=== PATIENT | male | born 1945 | race Caucasian/White ===

== ENCOUNTER 2017-04-03 08:03 | Day surgery (SDC) | payer MEDICARE, OTHER ==
--- NOTE | 2017-04-02 08:17 | PCM.HPSURG ---
Subjective Date of Service: March 30, 2017 Referring Provider: Admitting Physician: Primary Care Physician: Rahat Muniz MD Attending Physician: William Araiza MD Chief Complaint SEE BELOW History of Present Illness Patient: Dhruv Yañez Date of : 1945 Visit Type: Pre Op Visit Date: 03/30/2017 09:00 AM This 72 year old male presents for Preop L4-5 MIS Ck Segment Decompress/ Microdisc & Fat. History of Present Illness: 1. Preop L4-5 MIS Ck Segment Decompress/Microdisc & Fat Dhruv Yañez is a 72 year old male referred by Primary care Provider (PCP) Dr. Malcolm Muniz M.D. with [facility]. Chilango Painter M.D. who presents today' s date 03/30/2017 for a preoperative type of appointment concerning the decision for surgery involving METRx minimally invasive microscopic bilateral lumbar segmental decompression L4-5 with approach from the right & left-sided L4 -5 microdiscectomy, lateral recess decompression of the L4 & L5 nerve roots with harvest of subcutaneous fat for placement of epidural fat graft from separate incision secondary to a diagnosis of lumbar radiculopathy with related complaints of severe, intractable, debilitating lower back pain radiating to the bilateral right > left lower extremities with numbness. Dr. William Araiza M.D. last evaluated the patient on 03/28/2017 at [facility] in [facility] documenting that the patient is usually in a good state of health until he was cleaning his cupboards on February 08. The patient felt a pop in his back & since that time he has had severe lower back & bilateral leg pain. Initially it was worse in the left than on the right. The patient sought medical attention & was placed on appropriate conservative measures including physical therapy. He was only able to tolerate physical therapy for 2 weeks. He developed progressive symptoms with the pain & discomfort is slightly greater on the right than the left leg. On the left side the pain extends all the way to the dorsum of the foot. He had a course of oral steroids. A recent MRI scan demonstrated evidence of severe acquired spinal stenosis at L4-5 level secondary to central disc herniation slightly asymptomatic to the left side. There was also severe lateral recess narrowing. He is here today regarding his current symptoms. He denies any recent changes in bowel or bladder dysfunction. He does feel weaker on his lower extremities although not progressive. According to Dr. Araiza. The patient's MRI scan shows multilevel degenerative disc & facet disease. At the L4-5 level the patient appears to have a large central & left-sided disc herniation causing severe acquired spinal stenosis at the L4-5 level asymmetric to the left side. There is moderate-severe lateral recess narrowing. Dr. Araiza's impression is that the patient has severe intractable bilateral lumbar radiculopathy secondary to central disc herniation slightly asymmetric to the left side causing acquired severe spinal stenosis at the L4-5 level. After reviewing the patient's history, examination, & MRI studies confirming symptomatic spinal pathology & failed conservative treatment ; Dr. Araiza recommend surgical intervention involving minimally invasive lumbar spinal decompression & microdiscectomy with epidural fat graft from a separate incision. Dr. Araiza the patient reviewed all the risks and benefits associated with the procedure as well as reasonable expectations with expected surgical outcomes & the patient elected to proceed with surgery as planned. The patient currently denies any related complete or acute loss of control of bowel or bladder function, saddle paresthesia or anesthesia. The patient has a reported pertinent past medical, surgical, family, & social history for multiple cardiac stents, coronary artery disease, surgical bowel resection, nephrolithiasis, + & spontaneous pneumothorax, with no other then the above known positive history &/or review of all other organ systems. The patient's related complaints have been a serious detriment to their happiness and activities of daily living. Having failed conservative treatment the patient presents today for their decision for surgery appointment involving METRx minimally invasive microscopic bilateral lumbar segmental decompression L4-5 with approach from the right & left-sided L4-5 microdiscectomy, lateral recess decompression of the L4 & L5 nerve roots with harvest of subcutaneous fat for placement of epidural fat graft from separate incision for treatment of lumbar radiculopathy; related to severe, intractable, and debilitating lower back pain radiating to the bilateral right > left lower extremities with numbness. The procedure is scheduled to be performed by Dr. William Araiza M.D. on 04/03/2017. ANESTHESIA NOTE: We are requesting anesthesia consultation for cardiac comorbidities & recent surgery scheduling. Problem List: Problem Description Microscopic hematuria Sciatica, left side Unspecified Chest Pain CAD Angina Nos Nephrolithiasis Problem List (not yet mapped to SNOMED-CT): Problem Description Hyperlipidemia-mixed disorder AR-Acute Inferior AR-Recent Inferior, with re-stenting of occluded mid RCA Tricuspid Valve-regurgitation Pneumonia, recurrent 03/23 Bruit, R Femoral PTCA RCA w/ Intracoronary Stent 12/24 Reviewed, no change. Last detailed document date:03/30/2017. Family History: Reviewed, no changes. Last detailed document date:03/30/2017. Social History (Reviewed, updated) 03/30/2017 Tobacco use reviewed. Preferred language is Urdu. The patient does not need an printer small print shop. Smoking status: Light tobacco smoker. Smoking Status Use Status Type Smoking Status Years Used Total Pack Years yes Cigarette Light tobacco smoker CAFFEINE The patient uses caffeine - 2 a day. Allergies: Ingredient Reaction Medication Name Comment NAPROXEN Anaphylaxis NAPROSYN Reviewed, no changes. Review of Systems System Neg/Pos Details MS Positive Back pain. Integumentary Negative Mrsa and rash. Taz/Lymph Negative Blood clots. Negative Dysuria, urge incontinence and urinary incontinence. Eyes Negative Double vision and vision loss. Constitutional Negative Chills and fever. MS Negative Bone/joint symptoms and muscle weakness. Psych Negative Anxiety and depression. Neuro Negative Dizziness, headache and seizures. Cardio Negative Chest pain, irregular heartbeat/palpitations, leg swelling and pacemaker. Endocrine Negative Weight gain and weight loss. Respiratory Negative Dyspnea, apnea and wheezing. ENMT Negative Hearing loss. GI Negative Abdominal pain, constipation, diarrhea, nausea and vomiting. Vital Signs Height Time ft in cm Last Measured Height Position % 8:55 AM 5.0 6.00 167.64 03/19/2007 Weight/BSA/BMI Time lb oz kg Context % BMI kg/m2 BSA m2 8:55 AM 141.20 64.047 dressed with shoes 22.79 Blood Pressure Time BP mm/Hg Position Side Site Method Cuff Size 8:55 AM 121/77 sitting left wrist automatic adult Temperature/Pulse/Respiration Time Temp F Temp C Temp Site Pulse/min Pattern Resp/ min 8:55 AM 98.0 36.7 65 regular Pain Scale Time Pain Score Method 8:55 AM 4/10 Numeric Pain Intensity Scale Measured By Time Measured by 8:55 AM Raj Danielle MA Screening Summary:o The following were reviewed: tobacco use Physical Exam Exam Findings Details Comments WD/WN, male who is AO x 3, cooperative & appears to be in NAD w/ language & speech that is intact & fluent. There is no evidence of recent or remote memory impairment. The patient's knowledge is appropriate for age & level of education w/ a pleasant affect & euthymic mood. Ambulates w/ no difficulty. NC/AT, PERRL, EOMI, w/o facial droop, hearing grossly intact, nostrils patent, oral cavity and pharynx normal. Neck supple, w/o LAD or thyromegaly. Heart reveals RRR w/o audible murmurs Lungs CTAB Abdomen is NT/ND Margin voluntary paraspinal muscle spasm. No tenderness over her SI joint. Positive straight leg raise maneuver on the left side at 45 and on the right at 50. Weakness of dorsiflexion on the left side & 5/5 on the right. He has numbness predominantly in the L5 distribution. Assessment/Plan # Detail Type Description 1. Assessment Lumbar radiculopathy (M54.16). 2. Assessment Preoperative examination (Z01.818). Patient Plan We including your Attending Surgeon have discussed the risks and benefits associated your scheduled procedure which you have verbally acknowledged understanding including but not limited to the possibility of an outcome that we are unable to predict or was not mentioned. 1. You are scheduled for a METRx minimally invasive microscopic bilateral lumbar segmental decompression L4-5 with approach from the right & left-sided L4 -5 microdiscectomy, lateral recess decompression of the L4 & L5 nerve roots with harvest of subcutaneous fat for placement of epidural fat graft from separate incision with Dr. William Araiza M.D. at [facility] on . 2. Check in time is 8 a.m. Also please ignore instructions below if told otherwise by your preadmission nurse or if you do not take the medications listed below. 3. Nothing to eat after midnight the night before surgery. You may take all of your "approved" medications with small sips of water. Remember to take your a.m. hypertension medication if it is a beta natacha and ends in "olol. Otherwise ask your doctor if you need to hold your a.m. hypertension medication. 4. No aspirin, ibuprofen, Naprosyn, or other NSAIDs starting 7 days prior to surgery. 5. Please stop Warfarin/Coumadin or other blood thinners such as Plavix, Aggrenox, or Xarelto 7 days prior to your surgical procedure and follow specific instructions from your prescribing provider. 6. Please stop Lovenox bridging in the morning one day prior to procedure. 7. Please stop Suboxone/Buprenorphine at least 4 days prior to procedure. 8. Go to the hospital today to get her preoperative testing done. Take the order form to the surgery desk on the second floor of the hospital, [facility] (main entrance next to the emergency entrance). I will notify you if there is any test results that require further workup prior to surgery. 9. Follow the instructions you were given today, use the cleansing cloths the night before as well as the morning of her surgery. 10. If you are prescribed inhalers, CPAP or BiPAP machines you use at home bring along with you to the hospital. 11. ONLY If you take medications for Diabetes: If you have an insulin pump continue lowest (typically night-time) basal rate into the a.m. If you do not have a pump check h your a.m. blood sugar and hold insulin if BS less than 100. If you are taking long-acting, intermediate acting (NPH) or 70/30 preparation : Take half on day of procedure. If you are taking ultra long-acting insulin such as glargine, Lantus either at night or in the a.m. continue as scheduled ( including day of surgery). If you take short acting regular insulin (insulin not delivered via pump) discontinue on day of procedure. 12. Please call if you have any questions before your surgery: [phone]. Today's instructions/counseling include(s) Pre-operative instructions given to the patient and or legal customer field representative(s) orally and in writing. 13. Our office will contact you if there are any test results that require further workup prior to surgery. Provider Plan The patient's history and examination as well as radiological findings were reviewed with Dr. William Araiza M.D. and conveyed the patient in detail. The findings are consistent with lumbar radiculopathy and are most likely the cause of the patient's severe, intractable, and debilitating lower back pain radiating to the right > left lower extremities with numbness. The patient has failed extensive conservative treatment for this condition. The treatment options were discussed with the patient. The options include attempt to live with the condition, reattempt conservative treatment, try a pain management intervention / injection or consider a surgical intervention. We are not extremely optimistic that further conservative treatment, pain management intervention and/or injection will adequately resolve the patient's symptoms of severe, intractable, and debilitating lower back pain radiating into the right > left lower extremities with numbness. Therefore we recommend METRx minimally invasive microscopic bilateral lumbar segmental decompression L4 -5 with approach from the right & left-sided L4-5 microdiscectomy, lateral recess decompression of the L4 & L5 nerve roots with harvest of subcutaneous fat for placement of epidural fat graft from separate incision. The patient was provided/offered educational materials pertaining to their diagnosis and the above discussed procedure. We discussed the risks and benefits associated with this surgery. A spine model was used to explain the nature of this type of surgery. The risk of the required anesthesia was also mentioned including but not limited to organ failure such as heart attack, pneumonia and stroke even . The risk of this type of surgery was also mentioned. Including but not limited to an unsuccessful outcome, residual symptoms, referred or radiating posterior spinal myofascial inflammatory pain or spasm, post operative instability, instrumentation failure, sensory changes, blood loss, blood clots, wound infection, spinal cord or nerve damage, CSF or lymph leak, damage to neighboring structures such as the recurrent laryngeal nerve, perforation of the esophagus or trachea, abdominal vasculature, bowel, ureter, and bladder, resulting in temporary or permanent dysfunction, even disability, paralysis, and . The recovery of this type of surgery was also mentioned. There is a 15% chance of recurrent disc herniation with a discectomy. The chances for improvement of the related lower extremity lumbar radiculopathy symptomology at one year is 70-80%. The chances of improvement of unrelated local mechanical lower back pain is 50%. The patient verbalized understanding all the risks and benefits, knowing that it is impossible to predict or guarantee every surgical outcome; and would like to proceed with the above discussed procedure anyways. Surgery is scheduled for 04/03/2017 The standard [facility] preoperative screening tests, medicine restrictions, and logistical protocols apply. Any preoperative testing is within normal limits to undergo the above discussed procedure unless otherwise noted in the medical record. ANESTHESIA NOTE: We are requesting anesthesia consultation for cardiac comorbidities & recent surgery scheduling. Medications (added, continued or stopped this visit): Start Date Medication Directions Stop Date 01/17/2007 Aspirin 81 Mg Tablet 1 tablet by mouth daily 02/09/2017 Crestor 20 mg tablet 1 tabs daily 01/03/2027 02/09/2017 cyclobenzaprine 5 mg tablet take 1 tablet by oral route 3 times every day 04/02/2017 cyclobenzaprine 5 mg tablet take 1-2 tablet(s) by oral route every 8 hours as needed for spasm 03/30/2017 docusate sodium 250 mg capsule take 1 capsule by oral route 2 times every day lisinopril 5 mg tablet take 1 tablet by oral route every day 01/13/2005 Nitroglycerin Take as Directed 04/02/2017 Percocet 5 mg-325 mg tablet take 1 - 2 tablet by oral route every 4 - 6 hours as needed for pain 01/17/2007 Toprol Xl 1 tablet by mouth daily Counseling/Educational Factors: Counseling / educational factors reviewed. Counseling / educational factors reviewed. This is a visit of 60 minutes. 50 minutes were spent counseling. This document may have been created using voice recognition software or other electronic means and may contain inadvertent transporter radiology errors. Provider: Az PANIAGUA 03/30/2017 12:25 PM Document generated by: Az Hearn 03/30/2017 12:25 PM CC Providers: Rahat Muniz [address] [place] [address]- Rahat Muniz [address] [place] [address]- Chilango Painter [address] [place] [address] w neha araiza i oksana lemus s Rob appiah g Allergy Allergies: Coded Allergies: amoxicillin (Verified Allergy, Severe, Anaphylaxis, 11/20/15) naproxen (Verified Allergy, Severe, Anaphylaxis, 11/20/15) Social History Hx Alcohol Use: Yes Alcoholic Drinks Per Day: holidays Hx Substance Use: No PMH HEENT History History of ENT Problems?: No HEENT History: Positive for:: Sinus Problem Denies:: Cataracts Dysphagia Cardiovascular History History of Heart Problems?: Yes Cardiovascular History: Positive for:: Cardiac Surgery (ptca with stent 2006- stent to RCA) Chest Pain Denies:: Congestive Heart Failure Edema Heart Murmur Hypertension Irregular Heartbeat Pacemaker Thrombophlebitis Respiratory History of Respiratory Problem: Yes Respiratory History: Positive for:: Dyspnea (hx of spontaneous pneumo 1976, 1977) Pneumonia (remote hx of) Denies:: Asthma COPD Chest Surgery Emphysema Hemoptysis Oxygen Administration Tuberculosis Use of C-PAP Machine Neurological History Hx Neurologic Problems?: No Neurological History: Denies:: Alzheimer's Disease CVA Dementia Dizziness Headaches Parkinson's Disease Seizures Gastrointestinal History HX of GI Problems?: No Genitourinary History Hx of Gu Problems?: Yes Genitourinary History: Positive for: Kidney Stones (remote hx of) Denies: Urinary Tract Infection Skin History Skin History: Denies:: History Skin Disorders? Musculoskeletal History Hx Musculoskeletal Problems?: Yes Musculoskeletal History: Positive for:: Back Injury (lumbar spinal stenosis current admission problem) Psycho Social History Hx of Psycho/Social Problems?: No Other History Hx Any Other Health Problems?: Yes Other History: Positive for:: Hospitalization Denies:: Cancer Thyroid Disease Diabetes: No Social History Hx Alcohol Use: YesAlcoholic Drinks Per Day: holidaysHx Substance Use: No Smoking Status: Former Smoker Az Hearn PA-C April 02, 2017 08:17
[~2017-04-03] VITALS: Ht 167.6 cm; Wt 63.6 kg
[2017-04-03] VITALS (13 sets, daily range): BP systolic 113–157; BP diastolic 55–81; PULSE 59–85; RESP 14–18; O2SAT 96–99
[2017-04-03] MEDS: Lactated Ringer's 1,000 ML IV SCH ×5 (05:00→13:42)
[2017-04-03] MEDS: Thrombin Powder 5,000 Unit TOPICAL SCH ×2 (06:00→10:51)
[2017-04-03] MEDS: Clindamycin 900 mg/50 mL D5W Premix IV SCH ×2 (06:00→10:16)
[~2017-04-03 08:03] MED LIST: ASPI-973 PO; Bacitracin 50,000 unit Inj IRRIGATION SCH; CRES20T PO; CYCL5TAB PO; LISI-571 PO; METO25TA6 PO; NITR0.4T6 SL
[2017-04-03] MEDS ORDERED: Neostigmine 1 mg/mL 10 mL Inj ONE (08:04)
[2017-04-03] MEDS ORDERED: Rocuronium 10 mg/mL 5 mL Inj ONE (08:04)
[2017-04-03] MEDS ORDERED: Phenylephrine/NS 100 mCg/mL 10 mL Syringe IVPUSH ONE (08:04)
[2017-04-03] MEDS ORDERED: EPHEDrine/NS 5 mg/mL 5 mL Syringe ONE (08:04)
[2017-04-03] MEDS ORDERED: Propofol 10,000 mCg/mL 20 mL Inj ONE (08:04)
[2017-04-03] MEDS ORDERED: Ondansetron 2 mg/mL 2 mL Inj ONE (08:04)
[2017-04-03] MEDS ORDERED: fentaNYL-PF 50 mCg/mL 2 mL Inj ONE (08:04)
[2017-04-03] MEDS ORDERED: Dexamethasone 4 mg/mL Inj ONE (08:04)
[2017-04-03] MEDS ORDERED: Glycopyrrolate 0.2 MG/ML 1mL Inj ONE (08:04)
[2017-04-03] MEDS ORDERED: Esmolol 10,000 mCg/mL 10 mL Inj ONE (08:04)
[2017-04-03] MEDS ORDERED: HYDR-3090 PO (08:58)
--- NOTE | 2017-04-03 09:38 | PCM.HPANE ---
Patient Data Surgeon Admitting Provider: Attending Provider:William Araiza MD Primary Care Physician:Rahat Muniz MD Other Provider:AsscordeliaDonora Anesthesia Reason for Visit Lumbar Spinal Stenosis Ht/WT & BMI Height (Feet): 5 Height (Inches): 6 Weight (Kilograms): 63.6 Body Mass Index 22.00 Allergies Coded Allergies: amoxicillin (Verified Allergy, Severe, Anaphylaxis, 11/20/15) naproxen (Verified Allergy, Severe, Anaphylaxis, 11/20/15) Past Anesthesia History Anesthesia History: Denies:: Abnormal Airway, Anesthesia Reactions, Difficult Intubation, Fam Anesthesia Reaction, Fam Malignant Hypertherm, Malignant Hyperthermia Diabetes History Hx Diabetes?: No MRSA MRSA: No Medications Blood Thinner: Aspirin Hypertension Medication: Yes Home Meds Incl Beta Guero: Yes Previous Beta Guero Dose >24: Previous Dose <24 Hours Reported Medications Hydrocodone-Acetaminophen 5-300 mg 1 Each Tablet1 Tablet PO Q4H PRN For Pain Ref 0 04/03/17 Cyclobenzaprine 5 Mg Tablet5 Mg PO TID PRN Spasm 03/30/17 Metoprolol Tartrate 25 Mg Rlypzi71.5 Mg PO DAILY 30 Days Ref 0 03/30/17 Nitroglycerin SL 0.4 Mg Tab.subl0.4 Mg SL PRN For Chest Pain 03/30/17 Lisinopril 5 Mg Tablet5 Mg PO DAILY #30 TABLET Ref 0 03/30/17 Rosuvastatin Calcium (Crestor)20 Mg [id number] Mg PO DAILY 30 Days Ref 0 03/30/17 Aspirin 81 Mg [id number] Mg PO DAILY Ref 0 03/30/17 History History of ENT Problems?: No HEENT History: Positive for:: Sinus Problem Denies:: Abnormal Airway Cataracts Difficult Intubation Dysphagia Glaucoma Hearing Problem TMJ Denture Type: None Teeth Condition: Within Normal Limits Hx of Heart Problems?: Yes Cardiovascular History: Positive for:: Cardiac Surgery (ptca with stent 2006- stent to RCA) Chest Pain Denies:: Congestive Heart Failure Edema Heart Murmur Hypertension Irregular Heartbeat Pacemaker Thrombophlebitis Other Cardiac History: > 4 METS, recent stress echo notable for good exercise capacity, possible ischemia on stress echo ( this has been worked up in the past with coronary catheterization without intervention) Hx of Respiratory Problem?: Yes Respiratory History: Positive for:: Dyspnea (hx of spontaneous pneumo 1976, 1977) Pneumonia (remote hx of) Denies:: Asthma COPD Chest Surgery Emphysema Hemoptysis Oxygen Administration Tuberculosis Use of C-PAP Machine Hx Neurologic Problems?: No Neurological History: Denies:: Alzheimer's Disease CVA Dementia Dizziness Headaches Parkinson's Disease Seizures Hx of GI Problems?: No Hx of Problems?: Yes Genitourinary History: Positive for:: Kidney Stones (remote hx of) Denies:: Urinary Tract Infection Skin History: Denies:: History Skin Disorders? Hx Musculoskeletal Problems?: Yes Musculoskeletal History: Positive for:: Back Injury (lumbar spinal stenosis current admission problem) Hx of Psycho/Social Problems?: No Hx Surgeries?: Yes (kidney stones, vasectomy, both cardiac stents.) Hx Any Other Health Problems?: Yes Other History: Positive for:: Hospitalization Denies:: Cancer Thyroid Disease History Blood Transfusions: Denies:: Blood Transfuse Reaction Blood Transfusions Hx Diabetes: No Hx Alcohol Use: YesAlcoholic Drinks Per Day: holidaysHx Substance Use: No Smoking Status: Former Smoker Have You Smoked inLast 12 mo: Yes Stop/Bang B- Body Mass Index > 35 kg/m2: No A- Age over 50: Yes N- Neck Large Circumference: No G- Gender Male: Yes SUDHIR Risk Assessment: Low Risk, <3 Yes Risk Assessment Category Category 1A: Patient has history of documented sleep apnea, and HAS NOT received any narcotic, sedative or anesthesia administration during this stay. Category 1B: Patient has history of documented sleep apnea, and HAS received any narcotic , sedative or anesthesia administration during this stay Category 2: Patient has SUSPECTED Obstructive Sleep Apnea, and HAS received any narcotic , sedative or anesthesia administration during this stay. Category 3: Patient has SUSPECTED Obstructive Sleep Apnea and HAS NOT received narcotic, sedative or anesthesia administration during this stay. Category 4: Outpatient in Procedural Areas with known sleep apnea or who screen positive for High Risk via the STOP/BANG questionnaire. Exam Exam Vital Signs Vital Signs Date Time Temp Pulse Resp B/P Pulse Ox O2 Delivery O2 Flow Rate FiO2 04/03/17 08:18 36.2 59 15 127/59 98 Room Air General Appearance: Alert, Oriented X3, Cooperative, No Acute Distress HEENT/AIRWAY: MP 2 Lungs: Clear to Auscultation, Normal Air Movement Heart: Exam Unremarkable, Regular Rate/Rhythm, No Murmurs/Rubs/Gallops Meds/Labs/Diagnostics Admission Meds Current Medications Lactated Ringer's (Lr) 1,000 ml @ 120 mls/hr Q8H20M IV Last administered on t 08:05; Start 04/03/17 at 05:00; Stop 04/03/17 at 13:19 Plan Impression Patient chart reviewed, patient interviewed and anesthestic plan with risks, benefits, and alternatives discussed, and informed consent obtained. NPO per Anesth. Guidelines: Yes ASA Physical Status: ASA3 Severe Disease Anesthetic Support Modalities: Arterial Line Anesthetic Plan: GA Bene/Risks/Altern/Consents: Yes (patient understands risks and chooses to proceed, arterial line placement post-induction given that patient took MARYSE-I this morning along with Betablocker) HP Complete Prior to Induction: Yes Toy Pugh MD April 03, 2017 08:40
[2017-04-03] MEDS ORDERED: Lactated Ringer's 500 ML IV PRN (09:39)
[2017-04-03] MEDS ORDERED: Lactated Ringer's 1,000 ML IV SCH (09:39)
[2017-04-03] MEDS ORDERED: Ondansetron 2 mg/mL 2 mL Inj IVPUSH PRN ×3 (09:40→12:10)
[2017-04-03] MEDS ORDERED: Phenylephrine 10,000 mCg/mL Inj IVPUSH PRN (09:40)
[2017-04-03] MEDS ORDERED: fentaNYL-PF 50 mCg/mL 2 mL Inj IVPUSH PRN (09:40)
[2017-04-03] MEDS ORDERED: Labetalol 5 mg/mL 4 mL Inj IV PRN (09:40)
[2017-04-03] MEDS ORDERED: Atropine 0.4 mg/mL Inj IVPUSH PRN (09:40)
[2017-04-03] MEDS ORDERED: EPHEDrine Sulfate 50 mg/mL Inj IVPUSH PRN (09:40)
[2017-04-03] MEDS ORDERED: HYDROmorphone 1 mg/mL Inj IVPUSH PRN ×2 (09:40→12:10)
[2017-04-03] MEDS ORDERED: MetoCLOpramide 5 mg/mL 2 mL Inj IVPUSH PRN ×2 (09:40→12:10)
[2017-04-03] MEDS ORDERED: Gelatin Sponge 12-7 MM TOPICAL ONE (10:49)
[2017-04-03] MEDS ORDERED: Bacitracin 50,000 unit Inj IRRIGATION ONE (10:49)
[2017-04-03] MEDS ORDERED: Bupivacaine-MPF 0.25%/EPI 30 mL Inj INJ ONE (10:50)
[2017-04-03] MEDS ORDERED: Lactated Ringer's 1,000 ML IV ONE (11:08)
--- NOTE | 2017-04-03 11:25 | DRSVH ---
PROCEDURE: X-RAY LUMBAR SPINE, 2 OR 3 VIEW INDICATIONS: L3-5 DISCECTOMY, INTRAOPERATIVE LOCALIZATION TECHNIQUE: 3 views of the lumbar spine were acquired. COMPARISON: None. FINDINGS: Radiopaque surgical probe projected over the posterior elements at the L4-L5 level for operative plan vanita. IMPRESSION: Radiopaque surgical probe projected over the posterior elements on the right at the L4-L5 level. Dr. Araiza given results at 1050 hrs. 04/03/2017. Dictated by: Lg Hickman [facility] Interpreted: Kiara Monzon MD on 04/03/2017 at 11:07 Transcribed by: REYNALDO on 04/03/2017 at 11:11 Approved by: Kiara Monzon MD, PhD on 04/03/2017 at 15:11
[2017-04-03] MEDS ORDERED: Sodium Biphos-Phos 133 mL Enema RECTAL PRN (12:10)
[2017-04-03] MEDS ORDERED: Senna-Docusate 8.6-50 mg Tablet PO PRN (12:10)
[2017-04-03] MEDS ORDERED: Polyethylene Glycol (PEG) 17 Gm Powder PO PRN (12:10)
[2017-04-03] MEDS ORDERED: Magnesium Hydroxide 10 mL Oral Concentration PO PRN (12:10)
[2017-04-03] MEDS ORDERED: hydrOXYzine Pamoate 25 mg Capsule PO PRN (12:10)
[2017-04-03] MEDS: Acetaminophen IV 1,000 MG in IV Premix 1 EACH IV SCH ×3 (12:10→23:42)
--- NOTE | 2017-04-03 12:40 | PCM.ANEP1 ---
Post Anesthesia Phase 1 PACU Phase 1 Assessment Date of Service: March 30, 2017 Vital Signs Vital Signs Date Time Temp Pulse Resp B/P Pulse Ox O2 Delivery O2 Flow Rate FiO2 04/03/17 08:47 36.2 59 15 127/59 98 Room Air 04/03/17 08:18 36.2 59 15 127/59 98 Room Air Anesthetic Administered: GA Level of Alertness: Sleepy, easy to arouse DUARTE's with Equal Strength: Yes Pain: No Nausea or Vomiting: No Airway Device: Oralpharangeal Airway Oxygen Delivery: Simple Mask Lungs: Clear to Auscultation, Normal Air Movement Summary VSS, see BACKROOM ASSOCIATE notes, arterial line out in PACU Complications: No Follow up Care: No Patient Instructions Provided: Yes (per surgeon, ) Toy Pugh MD April 03, 2017 12:40
--- NOTE | 2017-04-03 14:36 | NUR ---
Post Op Patient received from PACU after 1300 today. VSS, dressing CDI. Patient rating pain at 6/10, PRN Dilaudid effective for this. Pt calm and coop with care.
--- NOTE | 2017-04-03 15:05 | OP ---
[address] [address] OPERATIVE REPORT PATIENT: KEM SCHULER : 1945 MR#: [id number] ADMIT: 04/03/2017 JOB ID: [id number] DATE OF SURGERY: 04/03/2017 SURGEON: William Araiza MD. TRACTOR TRAILER TECHNICIAN: Az Hearn PA-C. PREOPERATIVE DIAGNOSIS(ES): Symptomatic lumbar spinal stenosis with bilateral lumbar radiculopathy secondary to central and left-sided disc herniation and severe lateral recess narrowing bilaterally. POSTOPERATIVE DIAGNOSIS(ES): Symptomatic lumbar spinal stenosis with bilateral lumbar radiculopathy secondary to central and left-sided disc herniation and severe lateral recess narrowing bilaterally. PROCEDURES: 1. METRx microscope bilateral lumbosacral decompression, L4-5, with lateral recess decompression of the L4 and L5 nerve roots bilaterally. 2. Left L4-5 micro lumbar discectomy. 3. Placement of epidural fat graft obtained from a separate incision. 4. Intraoperative fluoroscopy for less than one hour. ANESTHESIA: General endotracheal anesthesia. COMPLICATIONS: None. ESTIMATED BLOOD LOSS: Was approximately 40 cc. DRAINS: #10 [place] drain. FINDINGS AT THE TIME OF SURGERY: There was a large central and left-sided disc herniation with protrusion both superiorly and inferiorly. Microdiscectomy was performed without complications. Lateral recess decompression of the L4 and L5 nerve roots was performed bilaterally as well as decompression of central canal. No evidence of any CSF leak or durotomy. INDICATIONS: A 72-year-old gentleman who began to have severe lower back and bilateral leg pain. Initially, it was worse on the left than the right, and then over time, seemed to be slightly worse on the right than the left. MRI scan was obtained which showed evidence of a large central disc herniation, slightly asymmetric to the left side at 4-5, causing significant severe acquired spinal stenosis and lateral recess narrowing. The patient was seen for a neurosurgical evaluation and option of surgery was discussed with the patient. He elected to proceed with surgery and admitted at this time for minimal access bilateral lumbosacral decompression at L4-5 and microdiscectomy. Indications and complication of the procedure were explained to the patient on his preop visit. Chances for improvement were approximately 70% in one year. He acknowledged, understood, and wanted to proceed. PROCEDURE: Patient was evaluated in the preop area, L4-5. Was placed on the patients left side. Patient's history, examination, medications, allergies, and labs were reviewed. He was then taken to the operating room and underwent general endotracheal anesthesia without complication. He was given 2 g of Ancef, and SCD's were placed on lower extremity. Patient was placed in prone position on Fernando frame in flexed position. Patient's extremities were properly padded into position. Lower back was then prepped in the usual sterile fashion for a minimal access decompression. After appropriate prepping and draping, the appropriate time-out in the OR was performed, confirming the patient's name, date of , planned procedure, and presence of appropriate instrumentation. Patient's SUDHIR, beta block, diabetic, and MRSA status was reviewed. Antibiotic administration, DVT prophylaxis, and appropriate imaging on the screen was confirmed. The skilled assistance of the PA, Az Hearn, was necessary for the successful completion of the case. He was essential for proper positioning, retraction of thecal sac and nerve root, as well as general safety of the patient. After a time-out was complete, a spinal needle was inserted adjacent to the spinous process of L4 and 5 on the left side. Intraoperative fluoroscopy was used to verify the 4-5 level. It was verified and it was marked on the patient's back. Needle was removed and the left paraspinous soft tissue was infiltrated with 0.25% Marcaine with epinephrine. After infiltration, a left paramedian incision was made and carried down through the skin and subcutaneous tissue. Subcutaneous fat grafts were obtained. A second incision was made, carried down through the skin and subcutaneous tissue, down to the level of the dorsal lumbar fascia. The operating tube was then placed at the 4-5 disk space. Sequential dilation undertaken until a 22 x [address] and secured to the articulating arm. AP view showed that the tube was adjacent to the spinous process of L4 and 5. Once fluoroscopy was removed, the operating microscope was brought into place. Overlying soft tissue was removed using Bovie cautery and straight forceps. The L4 and L5 hemilaminotomy was performed with lateral recess decompression of the L4 and L5 nerve roots. There was severe spinal and lateral recess stenosis. Epidural veins were coagulated and cut. The disk protrusion was then seen under the thecal sac and nerve root. It was under a great deal of pressure. This was then opened laterally using a 15 blade knife and using micro pituitaries and down pushing curet, disc material was pushed back into the disc space and then subsequently removed taking the tension off the thecal sac and nerve root. Once two or three large fragments of disc material were removed, the thecal nerve root could be retracted gently using a nerve root retractor. Routine dissection was then performed using straight forceps with down-pushing curets. Disc extruded superiorly and inferiorly from the disc space. Once the discectomy was completed, an exploration of the L4 and L5 nerve was performed using nerve root feeler. There was no further compression. There appeared to be good lateral recess decompression of the L4 and L5 nerve roots. Tube was then tilted to the right and decompression of the right side was performed. Lateral recess decompression of the L4 and L5 nerve was performed. At that point, the thecal sac and nerve roots appeared to be free and clear of any bony or soft tissue compression. A nerve root feeler was placed under the L4 and L5 neural foramina on the patient's right side. There was no CSF leak or durotomy. Careful hemostasis was achieved using two point cautery and cottonoids. Epidural fat grafts were then placed both the right and left side of the 4-5 disk space. This was then covered with Surgicel gauze. Tube was then carefully removed after hemostasis was achieved, coagulating bleeding points. Once it was removed, a #10 [place] drain was placed deep into the wound and brought out through a separate stab incision, connected to bulb suction. Fascial layer was then reapproximated using interrupted 0 Vicryl suture. Subcutaneous layer was then closed using inverted 3-0 Vicryl suture and skin was then closed using 4-0 Vicryl suture in subcuticular fashion. Incision was then dry and clean. This was followed by Steri-Strips. This was then covered with a sterile Telfa dressing and secured benzoin and paper tape. A drain dressing was applied. Patient was then transferred to a stretcher, awakened, and extubated. Was then taken to post anesthesia in stable condition. Patient tolerated procedure well without any major complications. All sponge and needle counts were correct x2. Estimated blood loss was approximately 40 cc. MTDD
[2017-04-03] MEDS: Clindamycin Inj 900 MG in IV Premix 1 EACH IV SCH (15:38)
--- NOTE | 2017-04-03 19:14 | NUR ---
Pain Patient is alert and oriented X3. Able to make needs known. Stable vital signs and stable oxygenation room air. Dressing clean dry and intact. ARDEN drain out put 30cc and report given to oncoming NOC nurse. PRN Dilaudid given for pain 04/28 with effective relief. patient also received scheduled Tylenol as ordered IV. Neuro's WNL. Call light with in reach and uses appropriately. Stable mood. using urinal. Tolerating PO fluids and meals well. family at bed side. continue to monitor vital signs, ambulation, Neuros, back pain, and safety.
[2017-04-03] MEDS: Senna-Docusate 8.6-50 mg Tablet PO SCH (20:30)
[2017-04-04] MEDS: Clindamycin Inj 900 MG in IV Premix 1 EACH IV SCH (00:14)
[2017-04-04 05:27] VITALS: BP 116/58; PULSE 66; RESP 16; O2SAT 97
--- NOTE | 2017-04-04 05:36 | NUR ---
Activity/pain Pt reporting pain up to 6/10 to back and reports effective relief of pain with 10 mg Oxycodone q 4 hrs overnight. Dressing to back is CDI, ARDEN drain had 40 ml of sero-sanguineous output. Pt has full sensation and was able to get up with OPA and FWW, a little wobbly at first. Pt has been appropriate with call light.
[2017-04-04] MEDS: Acetaminophen IV 1,000 MG in IV Premix 1 EACH IV SCH (06:10)
[2017-04-04] MEDS: Lactated Ringer's 1,000 ML IV SCH (06:18)
[2017-04-04 07:52] VITALS: BP 122/66; PULSE 63; RESP 18; O2SAT 99
[2017-04-04] MEDS: Senna-Docusate 8.6-50 mg Tablet PO SCH (09:11)
[2017-04-04 09:15] VITALS: BP 146/74; PULSE 73
--- NOTE | 2017-04-04 11:38 | NUR ---
Evaluation completed. Please go to "Notes" then click on "Assessments and Notes" (bottom left corner of screen). Then select appropriate discipline tab on top of screen.
--- NOTE | 2017-04-04 12:10 | PCM.DISURG ---
Surgical Discharge Instruction Date of Service April 04, 2017 Dates of Hospitalization Date of Hospital Admission Out patient with bed status 04/03/2017 Providers Admitting Physician: Primary Care Physician: Rahat Muniz MD Attending Physician: William Araiza MD Discharge Diagnosis Discharge Diagnosis Status post METRx minimally invasive microscopic bilateral lumbar segmental decompression L4-5 with approach from the right & left-sided L4-5 microdiscectomy, lateral recess decompression of the L4 & L5 nerve roots with harvest of subcutaneous fat for placement of epidural graft from separate incision Post Operative diagnosis Status post METRx minimally invasive microscopic bilateral lumbar segmental decompression L4-5 with approach from the right & left-sided L4-5 microdiscectomy, lateral recess decompression of the L4 & L5 nerve roots with harvest of subcutaneous fat for placement of epidural graft from separate incision. Additional Instructions Discharge Instructions Lumbar Decompression Instructions What is my recovery like? The hospital stay is usually overnight with discharge the next day. A lumbar brace is worn for comfort only. What are my restrictions? You should not lift anything heavier than five pounds. You should not perform any excessive bending from the waist or twisting movements. Can I Shower? You may shower when you go home. You must remove the outside dressing on the 7th day after surgery, or change as needed if soiled or saturated (replacing new sterile gauze & water proof dressing) otherwise leave alone. The remaining small pieces of tape (steri-strips) directly on top of the incision may get wet. The steri-strips will fall off on their own. Can I drive? No, you should not drive until specifically given permission from your Doctor in a follow up appointment. Most Patient's can drive in 2-3 weeks if they are not taking narcotic pain medications or muscle relaxers. You may ride in a car, but should avoid trips longer than two hours in duration. When can I return work / sports? Your Doctor will discuss your return to work with you on your first postoperative follow-up appointment. Most patients may return to work within 2 weeks for sedentary jobs. More physically demanding jobs may require 3-6 months of healing before such work can be considered. When should I call the doctor? You should call your Doctor or go to the Emergency Department if you develop chest pain, shortness of breath, a temperature greater than 101.5 F, severe uncontrolled pain or weakness, loss of bowel or bladder function, choking, lots or drainage, pus discharge or constipation. Instructions Regarding Comfort & Pain Medication Use: During the recovery period , even with the use of pain medication, you may experience pain at the site of surgery. You may also have the same type of pain you had before surgery. Please use your pain scale as a guide for taking your pain medication. When your pain is greater than 4 out of 10, or when your pain reaches your personal tolerable level of pain, take your pain medication as prescribed. Use your pain medication on an 'as needed' basis. This means if your pain level is within your tolerable level of pain you DO NOT need to take the medication. As you get better, you will notice you can increase the time interval between doses and decrease the number of tablets you are taking, gradually taking less and less pain medication. Taking pain medication when it is not necessary (for example when your pain is tolerable or acceptable) can result in dangerous side effects and over- sedation. Signs and symptoms of over-sedation include: drowsiness, excessive sleeping, slow or difficult breathing, slurred speech, impaired thinking, confusion, impaired motor coordination. If you have any of these symptoms stop taking the medication and immediately contact your doctor. IF SYMPTOMS ARE LIFE THREATENING CALL 911. To decrease pain and swelling, frequently apply an ice pack for 20 min intervals with at least one hour off. When to take Acetaminophen for pain? If you don't have liver problems, allergies and/or Tylenol is not in your current pain medication. Take Extra Strength Tylenol 500mg 2 tabs by mouth every 6 hours as needed for pain. DO NOT EXCEED 8 TABS PER DAY. Follow Up Plan Follow Up Plan Follow-up with physician assistant news director in outpatient neurosurgical clinic in 1 week for wound check. Follow-up Provider (F9): Az Hearn PA-C Additional Information Attending Statement All documentation reviewed & orders authorized by Dr. William Araiza M.D. Az Hearn PA-C April 04, 2017 12:10
--- NOTE | 2017-04-04 12:17 | PCM.DC.SUR ---
Discharge Summary Date of Service: April 04, 2017 Date of Hospital Admission: Outpatient with bed status 04/03/2017 Date of Operation(s): Outpatient with bed status 04/03/2017 Date of Discharge: 04/04/2017 Diagnosis at Time of Discharge Status post METRx minimally invasive microscopic bilateral lumbar segmental decompression L4-5 with approach from the right & left-sided L4-5 microdiscectomy, lateral recess decompression of the L4 & L5 nerve roots with harvest of subcutaneous fat for placement of epidural graft from separate incision. Problems: Operation METRx minimally invasive microscopic bilateral lumbar segmental decompression L4 -5 with approach from the right & left-sided L4-5 microdiscectomy, lateral recess decompression of the L4 & L5 nerve roots with harvest of subcutaneous fat for placement of epidural graft from separate incision. Brief History and Physical: Patient: Dhruv Yañez Date of : 1945 Visit Type: Pre Op Visit Date: 03/30/2017 09:00 AM This 72 year old male presents for Preop L4-5 MIS Ck Segment Decompress/ Microdisc & Fat. History of Present Illness: 1. Preop L4-5 MIS Ck Segment Decompress/Microdisc & Fat Dhruv Yañez is a 72 year old male referred by Primary care Provider (PCP) Dr. Malcolm Muniz M.D. with [employer] Dr. Chilango Painter M.D. who presents today' s date 03/30/2017 for a preoperative type of appointment concerning the decision for surgery involving METRx minimally invasive microscopic bilateral lumbar segmental decompression L4-5 with approach from the right & left-sided L4 -5 microdiscectomy, lateral recess decompression of the L4 & L5 nerve roots with harvest of subcutaneous fat for placement of epidural fat graft from separate incision secondary to a diagnosis of lumbar radiculopathy with related complaints of severe, intractable, debilitating lower back pain radiating to the bilateral right > left lower extremities with numbness. Dr. William Araiza M.D. last evaluated the patient on 03/28/2017 at [facility] in [facility] documenting that the patient is usually in a good state of health until he was cleaning his cupboards on February 08. The patient felt a pop in his back & since that time he has had severe lower back & bilateral leg pain. Initially it was worse in the left than on the right. The patient sought medical attention & was placed on appropriate conservative measures including physical therapy. He was only able to tolerate physical therapy for 2 weeks. He developed progressive symptoms with the pain & discomfort is slightly greater on the right than the left leg. On the left side the pain extends all the way to the dorsum of the foot. He had a course of oral steroids. A recent MRI scan demonstrated evidence of severe acquired spinal stenosis at L4-5 level secondary to central disc herniation slightly asymptomatic to the left side. There was also severe lateral recess narrowing. He is here today regarding his current symptoms. He denies any recent changes in bowel or bladder dysfunction. He does feel weaker on his lower extremities although not progressive. According to Dr. Araiza. The patient's MRI scan shows multilevel degenerative disc & facet disease. At the L4-5 level the patient appears to have a large central & left-sided disc herniation causing severe acquired spinal stenosis at the L4-5 level asymmetric to the left side. There is moderate-severe lateral recess narrowing. Dr. Araiza's impression is that the patient has severe intractable bilateral lumbar radiculopathy secondary to central disc herniation slightly asymmetric to the left side causing acquired severe spinal stenosis at the L4-5 level. After reviewing the patient's history, examination, & MRI studies confirming symptomatic spinal pathology & failed conservative treatment ; Dr. Araiza recommend surgical intervention involving minimally invasive lumbar spinal decompression & microdiscectomy with epidural fat graft from a separate incision. Dr. Araiza the patient reviewed all the risks and benefits associated with the procedure as well as reasonable expectations with expected surgical outcomes & the patient elected to proceed with surgery as planned. The patient currently denies any related complete or acute loss of control of bowel or bladder function, saddle paresthesia or anesthesia. The patient has a reported pertinent past medical, surgical, family, & social history for multiple cardiac stents, coronary artery disease, surgical bowel resection, nephrolithiasis, + & spontaneous pneumothorax, with no other then the above known positive history &/or review of all other organ systems. The patient's related complaints have been a serious detriment to their happiness and activities of daily living. Having failed conservative treatment the patient presents today for their decision for surgery appointment involving METRx minimally invasive microscopic bilateral lumbar segmental decompression L4-5 with approach from the right & left-sided L4-5 microdiscectomy, lateral recess decompression of the L4 & L5 nerve roots with harvest of subcutaneous fat for placement of epidural fat graft from separate incision for treatment of lumbar radiculopathy; related to severe, intractable, and debilitating lower back pain radiating to the bilateral right > left lower extremities with numbness. The procedure is scheduled to be performed by Dr. William Araiza M.D. on 04/03/2017. ANESTHESIA NOTE: We are requesting anesthesia consultation for cardiac comorbidities & recent surgery scheduling. Problem List: Problem Description Microscopic hematuria Sciatica, left side Unspecified Chest Pain CAD Angina Nos Nephrolithiasis Problem List (not yet mapped to SNOMED-CT): Problem Description Hyperlipidemia-mixed disorder MA-Acute Inferior MA-Recent Inferior, with re-stenting of occluded mid RCA Tricuspid Valve-regurgitation Pneumonia, recurrent 03/23 Bruit, R Femoral PTCA RCA w/ Intracoronary Stent 12/24 Reviewed, no change. Last detailed document date:03/30/2017. Family History: Reviewed, no changes. Last detailed document date:03/30/2017. Social History (Reviewed, updated) 03/30/2017 Tobacco use reviewed. Preferred language is Haitian. The patient does not need an automotive parts interpreter. Smoking status: Light tobacco smoker. Smoking Status Use Status Type Smoking Status Years Used Total Pack Years yes Cigarette Light tobacco smoker CAFFEINE The patient uses caffeine - 2 a day. Allergies: Ingredient Reaction Medication Name Comment NAPROXEN Anaphylaxis NAPROSYN Reviewed, no changes. Review of Systems System Neg/Pos Details MS Positive Back pain. Integumentary Negative Mrsa and rash. Taz/Lymph Negative Blood clots. Negative Dysuria, urge incontinence and urinary incontinence. Eyes Negative Double vision and vision loss. Constitutional Negative Chills and fever. MS Negative Bone/joint symptoms and muscle weakness. Psych Negative Anxiety and depression. Neuro Negative Dizziness, headache and seizures. Cardio Negative Chest pain, irregular heartbeat/palpitations, leg swelling and pacemaker. Endocrine Negative Weight gain and weight loss. Respiratory Negative Dyspnea, apnea and wheezing. ENMT Negative Hearing loss. GI Negative Abdominal pain, constipation, diarrhea, nausea and vomiting. Vital Signs Height Time ft in cm Last Measured Height Position % 8:55 AM 5.0 6.00 167.64 03/19/2007 Weight/BSA/BMI Time lb oz kg Context % BMI kg/m2 BSA m2 8:55 AM 141.20 64.047 dressed with shoes 22.79 Blood Pressure Time BP mm/Hg Position Side Site Method Cuff Size 8:55 AM 121/77 sitting left wrist automatic adult Temperature/Pulse/Respiration Time Temp F Temp C Temp Site Pulse/min Pattern Resp/ min 8:55 AM 98.0 36.7 65 regular Pain Scale Time Pain Score Method 8:55 AM 4/10 Numeric Pain Intensity Scale Measured By Time Measured by 8:55 AM Raj Danielle MA Screening Summary:o The following were reviewed: tobacco use Physical Exam Exam Findings Details Comments WD/WN, male who is AO x 3, cooperative & appears to be in NAD w/ language & speech that is intact & fluent. There is no evidence of recent or remote memory impairment. The patient's knowledge is appropriate for age & level of education w/ a pleasant affect & euthymic mood. Ambulates w/ no difficulty. NC/AT, PERRL, EOMI, w/o facial droop, hearing grossly intact, nostrils patent, oral cavity and pharynx normal. Neck supple, w/o LAD or thyromegaly. Heart reveals RRR w/o audible murmurs Lungs CTAB Abdomen is NT/ND Margin voluntary paraspinal muscle spasm. No tenderness over her SI joint. Positive straight leg raise maneuver on the left side at 45 and on the right at 50. Weakness of dorsiflexion on the left side & 5/5 on the right. He has numbness predominantly in the L5 distribution. Assessment/Plan # Detail Type Description 1. Assessment Lumbar radiculopathy (M54.16). 2. Assessment Preoperative examination (Z01.818). Patient Plan We including your Attending Surgeon have discussed the risks and benefits associated your scheduled procedure which you have verbally acknowledged understanding including but not limited to the possibility of an outcome that we are unable to predict or was not mentioned. 1. You are scheduled for a METRx minimally invasive microscopic bilateral lumbar segmental decompression L4-5 with approach from the right & left-sided L4 -5 microdiscectomy, lateral recess decompression of the L4 & L5 nerve roots with harvest of subcutaneous fat for placement of epidural fat graft from separate incision with Dr. William Araiza M.D. at [facility] on . 2. Check in time is 8 a.m. Also please ignore instructions below if told otherwise by your preadmission nurse or if you do not take the medications listed below. 3. Nothing to eat after midnight the night before surgery. You may take all of your "approved" medications with small sips of water. Remember to take your a.m. hypertension medication if it is a beta natacha and ends in "olol. Otherwise ask your doctor if you need to hold your a.m. hypertension medication. 4. No aspirin, ibuprofen, Naprosyn, or other NSAIDs starting 7 days prior to surgery. 5. Please stop Warfarin/Coumadin or other blood thinners such as Plavix, Aggrenox, or Xarelto 7 days prior to your surgical procedure and follow specific instructions from your prescribing provider. 6. Please stop Lovenox bridging in the morning one day prior to procedure. 7. Please stop Suboxone/Buprenorphine at least 4 days prior to procedure. 8. Go to the hospital today to get her preoperative testing done. Take the order form to the surgery desk on the second floor of the hospital, [facility] (main entrance next to the emergency entrance). I will notify you if there is any test results that require further workup prior to surgery. 9. Follow the instructions you were given today, use the cleansing cloths the night before as well as the morning of her surgery. 10. If you are prescribed inhalers, CPAP or BiPAP machines you use at home bring along with you to the hospital. 11. ONLY If you take medications for Diabetes: If you have an insulin pump continue lowest (typically night-time) basal rate into the a.m. If you do not have a pump check h your a.m. blood sugar and hold insulin if BS less than 100. If you are taking long-acting, intermediate acting (NPH) or 70/30 preparation : Take half on day of procedure. If you are taking ultra long-acting insulin such as glargine, Lantus either at night or in the a.m. continue as scheduled ( including day of surgery). If you take short acting regular insulin (insulin not delivered via pump) discontinue on day of procedure. 12. Please call if you have any questions before your surgery: [phone]. Today's instructions/counseling include(s) Pre-operative instructions given to the patient and or legal business services sales representative(s) orally and in writing. 13. Our office will contact you if there are any test results that require further workup prior to surgery. Provider Plan The patient's history and examination as well as radiological findings were reviewed with Dr. William Araiza M.D. and conveyed the patient in detail. The findings are consistent with lumbar radiculopathy and are most likely the cause of the patient's severe, intractable, and debilitating lower back pain radiating to the right > left lower extremities with numbness. The patient has failed extensive conservative treatment for this condition. The treatment options were discussed with the patient. The options include attempt to live with the condition, reattempt conservative treatment, try a pain management intervention / injection or consider a surgical intervention. We are not extremely optimistic that further conservative treatment, pain management intervention and/or injection will adequately resolve the patient's symptoms of severe, intractable, and debilitating lower back pain radiating into the right > left lower extremities with numbness. Therefore we recommend METRx minimally invasive microscopic bilateral lumbar segmental decompression L4 -5 with approach from the right & left-sided L4-5 microdiscectomy, lateral recess decompression of the L4 & L5 nerve roots with harvest of subcutaneous fat for placement of epidural fat graft from separate incision. The patient was provided/offered educational materials pertaining to their diagnosis and the above discussed procedure. We discussed the risks and benefits associated with this surgery. A spine model was used to explain the nature of this type of surgery. The risk of the required anesthesia was also mentioned including but not limited to organ failure such as heart attack, pneumonia and stroke even . The risk of this type of surgery was also mentioned. Including but not limited to an unsuccessful outcome, residual symptoms, referred or radiating posterior spinal myofascial inflammatory pain or spasm, post operative instability, instrumentation failure, sensory changes, blood loss, blood clots, wound infection, spinal cord or nerve damage, CSF or lymph leak, damage to neighboring structures such as the recurrent laryngeal nerve, perforation of the esophagus or trachea, abdominal vasculature, bowel, ureter, and bladder, resulting in temporary or permanent dysfunction, even disability, paralysis, and . The recovery of this type of surgery was also mentioned. There is a 15% chance of recurrent disc herniation with a discectomy. The chances for improvement of the related lower extremity lumbar radiculopathy symptomology at one year is 70-80%. The chances of improvement of unrelated local mechanical lower back pain is 50%. The patient verbalized understanding all the risks and benefits, knowing that it is impossible to predict or guarantee every surgical outcome; and would like to proceed with the above discussed procedure anyways. Surgery is scheduled for 04/03/2017 The standard [facility] preoperative screening tests, medicine restrictions, and logistical protocols apply. Any preoperative testing is within normal limits to undergo the above discussed procedure unless otherwise noted in the medical record. ANESTHESIA NOTE: We are requesting anesthesia consultation for cardiac comorbidities & recent surgery scheduling. Medications (added, continued or stopped this visit): Start Date Medication Directions Stop Date 01/17/2007 Aspirin 81 Mg Tablet 1 tablet by mouth daily 02/09/2017 Crestor 20 mg tablet 1 tabs daily 01/03/2027 02/09/2017 cyclobenzaprine 5 mg tablet take 1 tablet by oral route 3 times every day 04/02/2017 cyclobenzaprine 5 mg tablet take 1-2 tablet(s) by oral route every 8 hours as needed for spasm 03/30/2017 docusate sodium 250 mg capsule take 1 capsule by oral route 2 times every day lisinopril 5 mg tablet take 1 tablet by oral route every day 01/13/2005 Nitroglycerin Take as Directed 04/02/2017 Percocet 5 mg-325 mg tablet take 1 - 2 tablet by oral route every 4 - 6 hours as needed for pain 01/17/2007 Toprol Xl 1 tablet by mouth daily Counseling/Educational Factors: Counseling / educational factors reviewed. Counseling / educational factors reviewed. This is a visit of 60 minutes. 50 minutes were spent counseling. This document may have been created using voice recognition software or other electronic means and may contain inadvertent warp picker errors. Provider: Az PANIAGUA 03/30/2017 12:25 PM Document generated by: Az Hearn 03/30/2017 12:25 PM CC Providers: Rahat Muniz [address] [place] [address]- Rahat Muniz [address] [place] [address]- Chilango Painter [address] [place] [address] w neha araiza i n i c s Rob appiah g Hospital Course: Hospital Course: The patient was admitted through same day surgery and subsequently underwent a METRx minimally invasive microscopic bilateral lumbar segmental decompression L4 -5 with approach from the right & left-sided L4-5 microdiscectomy, lateral recess decompression of the L4 & L5 nerve roots with harvest of subcutaneous fat for placement of epidural graft from separate incision. The patient tolerated the procedure well. The patient was then was transferred to PACU and then to the OSC floor. The patient was admitted for postoperative pain control, PT/OT, supervised for hypertension co-morbidities with nurse monitoring, continuous pulse oximetry, and discharge planning. The Patient's overnight course was within normal limits. Currently the patient has complaints of mild surgical site discomfort with slight initial instability out of bed that improved with increased ambulation. There is significant improvement of the patient's residual lumbar radiculopathy symptoms. The patient denies headache, severe sore throat or dysphagia, chest pain, shortness of breath, abdominal pain, nausea, vomiting, constipation, diarrhea, or any new onset &/or location of pain, weakness or paresthesias aside from the surgical site. PHYSICAL EXAM This is a well developed, well nourished, male who is alert, cooperative, and appears to be in no acute distress with a pleasant affect & euthymic mood. Exam of the head is normocephalic. PERRL, EOMI, without facial droop, hearing grossly intact, nostrils patent, oral cavity and pharynx normal. Voice is within normal limits Exam or the heart reveals regular rate and rhythm without audible murmurs The lungs are clear to auscultation bilaterally. The abdomen is non- tender and non-distended. Exam of the lumbar surgical wound reveals that it is clean, dry, and intact; without signs of infection, inflammation, and her hematoma. There is a rate of output less than 30 mL surgical drain in the last 8 hour period therefore the drain was removed. Gross exam of the extremities reveals strength & sensation are grossly intact within the patient's normal baseline limits improved diminished sensation in the bilateral lower extremities. The patient was eventually able to get out of bed and ambulate within acceptable limits. Therapy services made recommendations for disposition. Flatus was appreciated and the patient was able to void without significant difficulty. The pain was gradually under control. The patient was afebrile on discharge. The patient's incision(s) was clean, dry and intact. The dressing was changed to the Surgeon's specifications. The output from the wound drain was less then 30cc's in an 8 hour period at discharge and therefore the drain was removed. The patient progressed well with rehabilitation and was subsequently discharged to home in stable condition. The patient verbally affirmed understanding when given clear instruction regarding the postoperative care and follow-up including but not limited to seeking immediate medical attention for chest pain, shortness of breath, oversedation, a temperature greater than 101.5 F, severe uncontrolled pain or weakness, loss of bowel or bladder function, choking, lots or drainage, pus discharge or constipation. All questions were answered. Disposition: Home in stable condition. Follow-up Plan: Follow-up with physician ophthalmic assistant in outpatient neurosurgical clinic in 1 week for wound check. Aspirin (Aspirin) 81 Mg Tablet 81 MG PO DAILY (Reported) Cyclobenzaprine (Cyclobenzaprine) 5 Mg Tablet 5 MG PO TID PRN PRN Spasm ( Reported) Hydrocodone-Acetaminophen 5-300 mg (Hydrocodone-Acetaminophen 5-300 mg) 1 Each Tablet 1 TABLET PO Q4H PRN PRN For Pain (Reported) Lisinopril (Lisinopril) 5 Mg Tablet 5 MG PO DAILY (Reported) Metoprolol Tartrate (Metoprolol Tartrate) 25 Mg Tablet 12.5 MG PO DAILY ( Reported) Nitroglycerin SL (Nitroglycerin SL) 0.4 Mg Tab.subl 0.4 MG SL PRN For Chest Pain (Reported) Rosuvastatin Calcium (Crestor) 20 Mg Tablet 20 MG PO DAILY (Reported) Discharge Medications: Prescribed during the patient's preoperative appointment. Attending Statement: All documentation reviewed & orders authorized by Dr. William Araiza M.D. copies to: Rahat Muniz MD, Scott PA-C April 04, 2017 12:17
--- NOTE | 2017-04-04 13:26 | NUR ---
Discharge Pt discharged to home with son at 1320; left unit via w/c to vehicle. A&Ox3, No drain in place, Dressings from removed drain and incision site CDI. DUARTE, VSS, Pain present but tolerable, IV dc'd intact, All personal belongings in hand at dc. No scripts given; CareNotes provided on dc dx. No unanswered questions/concerns at time of dc.
== END 2017-04-04 13:20 | disposition home or self-care (01) ==
LOC: SAS 08:03 → OSC 13:20 → SAS 04-04 13:20
PROVIDERS: ATTEND Neurological Surgery
DX: M51.16 Intervertebral disc disorders with radiculopathy, lumbar region (principal); M48.06 Spinal stenosis, lumbar region; I25.10 Atherosclerotic heart disease of native coronary artery without angina pectoris; J93.9 Pneumothorax, unspecified; I25.2 Old myocardial infarction; F17.210 Nicotine dependence, cigarettes, uncomplicated; Z95.5 Presence of coronary angioplasty implant and graft; Z87.442 Personal history of urinary calculi; Z79.82 Long term (current) use of aspirin; Z79.891 Long term (current) use of opiate analgesic
CPT/HCPCS: 20926; 63047; 63048; 72100; 76000; 94640; 97161; J0131; J1100; J1170; J2370; J2405; J2710; J3010; J7120